=== PATIENT | female | born 1970 | race African-American/Black ===

== ENCOUNTER 2017-11-30 16:58 | Emergency (ER) | payer MEDICAID ==
[~2017-11-30] VITALS: Ht 162.6 cm; Wt 68.0 kg
[2017-11-30] MEDS ORDERED: OLANZAPINE 5MG TABLET PO STA (18:17)
[2017-11-30] MEDS ORDERED: LORAZEPAM 0.5MG TABLET PO ONE (20:15)
[2017-11-30 20:44] LABS: *AMPHETAMINES SCREEN URINE NEGATIVE (NEGATIVE); *BARBITURATES SCREEN URINE NEGATIVE (NEGATIVE)
[2017-11-30 20:45] LABS: *BENZODIAZEPINES SCREEN URINE NEGATIVE (NEGATIVE); *COCAINE SCREEN URINE NEGATIVE (NEGATIVE); CANNABINOID URINE SCREEN NEGATIVE (NEGATIVE); METHADONE URINE SCREEN NEGATIVE (NEGATIVE); OPIATES URINE SCREEN NEGATIVE (NEGATIVE); PHENCYCLIDINE URINE SCREEN NEGATIVE (NEGATIVE)
[2017-11-30 21:40] LABS: CHLORIDE 110 mEq/L (98-107)
[2017-11-30 21:41] LABS: BASOPHILS % 0.7 % (0.0-2.0); EOSINOPHILS % 0.8 % (0.0-5.0); HEMATOCRIT. 39.5 % (36.0-48.0); HEMOGLOBIN. 13.3 g/dL (12.0-16.0); LYMPHOCYTES % 35.1 % (20.0-50.0); MEAN CORPUSCULAR HEMOGLOBIN 30.1 pg (28.0-32.0); MEAN CORPUSCULAR VOLUME 89.6 fL (81.0-99.0); MEAN PLATELET VOLUME 8.2 fl (7.4-10.4); MONOCYTES % 6.3 % (2.0-8.0); NEUTROPHILS % 57.1 % (40.0-76.0); PLATELET 277 x1000/uL (130-400); RED CELL DISTRIBUTION WIDTH 13.5 % (11.6-14.6)
[2017-11-30 21:44] LABS: ETHANOL BLOOD < 10 mg/dL
[2017-12-01 07:30] LABS: HCG SCREEN NEGATIVE
[2017-12-01] MEDS ORDERED: LORAZEPAM 0.5MG TABLET PO NR (07:45)
[2017-12-01 13:24] VITALS: BP 99/66
== END 2017-12-01 14:50 | disposition home or self-care (01) ==
LOC: ER 18:06
DX: R45.851 Suicidal ideations (principal); F20.9 Schizophrenia, unspecified; F31.9 Bipolar disorder, unspecified; Z88.8 Allergy status to other drugs, medicaments and biological substances
CPT/HCPCS: 36415; 80048; 80305; 80307; 80329; 84703; 85025; 99284; G0482; Z7610